=== PATIENT | male | born 1995 | race Caucasian/White ===

== ENCOUNTER 2017-06-24 02:23 | Emergency (ER) | payer BC ==
[2017-06-24 02:28] VITALS: BP 135/71
[2017-06-24 02:46] VITALS: TEMP 97.5
[2017-06-24] MEDS ORDERED: ZOFRAN ODT4 MG PO (02:54)
[2017-06-24 03:15] VITALS: PULSE 85
== END 2017-06-24 03:17 | disposition home or self-care (01) ==
LOC: COL.ER 02:23
DX: F10.129 Alcohol abuse with intoxication, unspecified (principal); R11.2 Nausea with vomiting, unspecified